=== PATIENT | female | born 1940 | race Caucasian/White ===

== ENCOUNTER 2016-12-09 16:30 | Emergency (ER) | payer OTHER, MEDICARE ==
[~2016-12-09] VITALS: Ht 161.3 cm; Wt 56.7 kg
--- NOTE | 2016-12-09 17:05 | ED GENERAL ADULT ---
History of Present Illness General Chief Complaint: General Adult Stated Complaint: PT HAD A FALL 5-25 ON COUMADIN WAS TOLD TO COME IN Source: patient Exam Limitations: no limitations Vital Signs & Intake/Output Vital Signs & Intake/Output Vital Signs Date Time Temp Pulse Resp B/P B/P Pulse O2 O2 Flow FiO2 Mean Ox Delivery Rate 12/09 1827 97.2 68 17 143/68 97 Room Air 12/09 1752 96 Room Air 12/09 1640 97.5 70 18 151/70 96 Room Air Allergies Coded Allergies: No Known Allergies () Reconcile Medications Calcium Carbonate/Vitamin D3 (Calcium 500 + D Tablet) (Unknown Strength) TABLET (Unknown Dose) PO DAILY SUPPLEMENT (Reported) Cephalexin (Unknown Strength) CAPSULE (Unknown Dose) UNKNOWN (Reported) Diltiazem HCl (Cartia Xt) 120 MG CAP.ER.24H 1 CAP PO DAILY HEART/BP (Reported ) Ibandronate Sodium (Boniva) (Unknown Strength) SYRINGE (Unknown Dose) AD AD OSTEOPOROSIS (Reported) Lisinopril 2.5 MG TABLET 1 TAB PO DAILY BP (Reported) Omeprazole 20 MG CAPSULE.DR 1 CAP PO PRN GI (Reported) Warfarin Sodium (Unknown Strength) TABLET (Unknown Dose) PO AD BLOOD THINNER (Reported) Triage Note: PT STATES THAT SHE WAS SENT BY HER PMD DUE TO SHE FELL OUT OF BED YESTERDAY HIT THE R SIDE OF HER HEAD ON D. DENIES LOC, PT IS ON THINNERS Triage Nurses Notes Reviewed? yes Onset: Abrupt Duration: day(s): (1) Timing: no prior history Injury Environment: home Severity: moderate No Modifying Factors: none HPI: Patient is a 76-year-old female on Coumadin for a valve replacement presenting to the emergency department with chief complaint of fall that happened early yesterday morning. Patient reports that she was reaching for her phone on the nightstand and accidentally fell off the bed and hit her head on the nightstand. Denies any loss of consciousness. No nausea vomiting fevers or chills. No visual changes. Denies any headaches weakness or fatigue. Denies taking anything to help with symptoms. She saw her primary care physician today and they recommended that she go to the emergency department for evaluation with a CAT scan because she is on Coumadin. (SALMA CASTILLO,SAMMIE) Past History Travel History Traveled to [place] past 21 day No Medical History Any Pertinent Medical History? see below for history Neurological: NONE Cardiovascular: AFIB, hypertension, VALVE RELACEMENT 7 YEARS Respiratory: NONE Gastrointestinal: NONE Hepatic: NONE Renal: NONE Musculoskeletal: NONE Psychiatric: NONE Endocrine: NONE Blood Disorders: NONE Cancer(s): NONE ENERGY CONSERVATION DIRECTOR/Reproductive: NONE Surgical History Surgical History: non-contributory Psychosocial History What is your primary language Algerian Tobacco Use: Never used ETOH Use: denies use Illicit Drug Use: denies illicit drug use Family History Hx Contributory? No (SAMMIE HARRIS) Review of Systems Review of Systems Constitutional: Reports: no symptoms. Comments Review of systems: See HPI, All other systems negative. Constitutional, no chills fever or weight loss HEENT: No visual changes no sore throat no congestion Cardiovascular: No chest pain ,palpitation , orthopnea or ankle swelling Skin, no jaundice Respiratory: No dyspnea cough sputum or hemoptysis GI: No nausea no vomiting : No dysuria No hematuria Muscle skeletal: no back pain, no neck pain, Neurologic: No numbness no confusion Psych: No stress anxiety or depression,. Heme/endocrine: No bruising no bleeding no polyuria or polydipsia Immunology: No splenectomy or history of AIDS (SAMMIE HARRIS) Physical Exam Physical Exam General Appearance: well developed/nourished, no apparent distress, alert, awake , comfortable Comments: Well-developed well-nourished person in no acute distress HEENT: extraocular motion intact, no nystagmus. Pupils equally round and reactive to light and accommodation. Nose is atraumatic. External auditory canal and Tympanic membranes clear. Pharynx normal. No swelling or edema. MILD TENDERNESS TO PALPATION IN POST AURICULAR AREA. NO HEMATYMPANUM OR IGNACIO SIGN. SMALL ABRASION APPROX 0.5CM ON POSTERIOR ASPECT OF SCALP. Neck: Supple, no lymphadenopathy, normal range of motion without pain or tenderness, NO C SPINE TENDERNESS Back: Nontender Cardiovascular: Regular rate and rhythms ,MURMUR PRESENT ALONG LEFT STERNAL BORDER Respiratory: Chest nontender. No respiratory distress.breath sounds clear to auscultation bilaterally Extremity: No edema, UPPER AND LOWER EXT STRENGTH IS 5/5 IN ALL EXT. Neuro: Alert oriented x3, motor sensory normal, cranial nerves II through XII grossly intact. STEADY GAIT. RAPID ALTERNATING HAND MOVEMENT WITHIN NORMAL LIMITS. FINGER TO NOSE INTACT. Skin: No appreciable rash on exposed skin, skin is warm and dry. Psych: Mood and affect is normal, memory and judgment is normal. Core Measures ACS in differential dx? No CVA/TIA Diagnosis: No Severe Sepsis Present: No Septic Shock Present: No (SAMMIE HARRIS) Progress Differential Diagnoses I considered the following diagnoses in my evaluation of the patient: Minor head injury, concussion, contusion, intracranial hemorrhage Plan of Care: Orders Procedure Date/time Status CT HEAD WO IV CONTRAST 12/09 1642 Active Diagnostic Imaging: Viewed by Me: CT Scan. Discussed w/RAD: CT Scan. Radiology Impression: PATIENT: JANINA JULIO PRESENT AGE: 76 PATIENT ACCOUNT NO: [id number] : 40 LOCATION: [facility] ORDERING PHYSICIAN: ZAC HURT DO SERVICE DATE: 12/09/16-1642 EXAM TYPE: CAT - CT HEAD WO IV CONTRAST EXAMINATION: CT HEAD WITHOUT CONTRAST CLINICAL INFORMATION: Head trauma. COMPARISON: None TECHNIQUE: Contiguous axial imaging was performed from the skull base to vertex without intravenous administration of contrast. DLP: 621 mGy-cm FINDINGS: There is no evidence of acute intracranial hemorrhage or territorial infarction. No abnormal mass effect or midline shift is seen. [place] to white matter differentiation is well preserved. No extra-axial fluid collections are identified. The ventricles are normal in size. Mild chronic white matter microangiopathic changes are noted with generalized parenchymal volume loss. The osseous structures and soft tissues are normal. The mastoid air cells and visualized portions of the paranasal sinuses are well aerated. IMPRESSION: No acute intracranial hemorrhage or territorial infarction. Mild chronic white matter microangiopathy and generalized parenchymal volume loss. DICTATED BY: MARI LIU MD DATE/TIME DICTATED:12/09/161836 SHIPPING INSPECTOR:BRAD DATE/TIME TRANSCRIBED:1836 CONFIDENTIAL, DO NOT COPY WITHOUT APPROPRIATE AUTHORIZATION. < Electronically signed in Other Vendor System> SIGNED BY: MARI LIU MD 12/09/161841 Initial ED EKG: none (SAMMIE HARRIS) Departure Departure Time of Disposition: 1843 Disposition: HOME OR SELF CARE Condition: Stable Clinical Impression Primary Impression: Minor head injury Qualifiers: Encounter type: initial encounter Qualified Code: S00.90XA - Unspecified superficial injury of unspecified part of head, initial encounter Secondary Impressions: Abrasion Referrals: SARIKA BURKS MD (PCP/Family) Additional Instructions: Follow-up with your primary care physician call to make an appointment. Return for any worsening headaches, vision changes confusion vomiting or concerns. PATIENT: JANINA JULIO PRESENT AGE: 76 PATIENT ACCOUNT NO: [id number] : 40 LOCATION: ER ORDERING PHYSICIAN: ZAC HURT DO SERVICE DATE: 12/09/16 EXAM TYPE: CAT - CT HEAD WO IV CONTRAST EXAMINATION: CT HEAD WITHOUT CONTRAST CLINICAL INFORMATION: Head trauma. COMPARISON: None TECHNIQUE: Contiguous axial imaging was performed from the skull base to vertex without intravenous administration of contrast. DLP: 621 mGy-cm FINDINGS: There is no evidence of acute intracranial hemorrhage or territorial infarction. No abnormal mass effect or midline shift is seen. [place] to white matter differentiation is well preserved. No extra-axial fluid collections are identified. The ventricles are normal in size. Mild chronic white matter microangiopathic changes are noted with generalized parenchymal volume loss. The osseous structures and soft tissues are normal. The mastoid air cells and visualized portions of the paranasal sinuses are well aerated. IMPRESSION: No acute intracranial hemorrhage or territorial infarction. Mild chronic white matter microangiopathy and generalized parenchymal volume loss. DICTATED BY: MARI LIU MD DATE/TIME DICTATED:12/09/161836 SHIPPING INSPECTOR:BRAD DATE/TIME TRANSCRIBED:12/09/161836 CONFIDENTIAL, DO NOT COPY WITHOUT APPROPRIATE AUTHORIZATION. <Electronically signed in Other Vendor System> SIGNED BY: MARI LIU MD 1841 Departure Forms: Customer Survey General Discharge Information (SAMMIE HARRIS) PA/FLOOR INSTALLATION MECHANIC Co-Sign Statement Statement: ED Attending supervision documentation- [X] I saw and evaluated the patient. I have also reviewed all the pertinent lab results and diagnostic results. I agree with the findings and the plan of care as documented in the PA's/FLOOR INSTALLATION MECHANIC's documentation. [X] I have reviewed the ED Record and agree with the PA's/FLOOR INSTALLATION MECHANIC's documentation. [] Additions or exceptions (if any) to the PAs/FLOOR INSTALLATION MECHANIC's note and plan are summarized below: [] (CECE URENA,SHIMA) Critical Care Note Critical Care Note Critical Care Time: non-applicable (SALMA CASTILLO,SAMMIE)
[2016-12-09] MEDS ORDERED: CARTIA XT120 M1 PO (17:33)
[2016-12-09] MEDS ORDERED: LISINOPRIL2.5 M1 PO (17:33)
[2016-12-09] MEDS ORDERED: WARFARIN SODIUM2 M1 PO (17:34)
[2016-12-09] MEDS ORDERED: BONIVA150 M1 PO (17:34)
[2016-12-09] MEDS ORDERED: OMEPRAZOLE20 M2 PO (17:35)
[2016-12-09] MEDS ORDERED: BONIVA3 MG/3 ML AD (17:35)
[2016-12-09] MEDS ORDERED: CALCIUM 500 +1 EAC5 PO (17:36)
[2016-12-09] MEDS ORDERED: CEPHALEXIN500 M3 (17:36)
[2016-12-09 18:27] VITALS: BP 143/68
--- NOTE | 2016-12-09 18:42 | CT SCAN REPORT ---
EXAMINATION: CT HEAD WITHOUT CONTRAST CLINICAL INFORMATION: Head trauma. COMPARISON: None TECHNIQUE: Contiguous axial imaging was performed from the skull base to vertex without intravenous administration of contrast. DLP: 621 mGy-cm FINDINGS: There is no evidence of acute intracranial hemorrhage or territorial infarction. No abnormal mass effect or midline shift is seen. [place] to white matter differentiation is well preserved. No extra-axial fluid collections are identified. The ventricles are normal in size. Mild chronic white matter microangiopathic changes are noted with generalized parenchymal volume loss. The osseous structures and soft tissues are normal. The mastoid air cells and visualized portions of the paranasal sinuses are well aerated. IMPRESSION: No acute intracranial hemorrhage or territorial infarction. Mild chronic white matter microangiopathy and generalized parenchymal volume loss.
== END 2016-12-09 19:21 ==
LOC: ERH 16:30
DX: S09.90XA Unspecified injury of head, initial encounter (principal); S00.01XA Abrasion of scalp, initial encounter; W06.XXXA Fall from bed, initial encounter; Y93.89 Activity, other specified; Y92.009 Unspecified place in unspecified non-institutional (private) residence as the place of occurrence of the external cause